=== PATIENT | male | born 1960 | race Hispanic/Latino ===

== ENCOUNTER 2017-10-29 11:18 | Emergency (ER) | payer BC ==
[2017-10-29 11:23] VITALS: BP 144/83; PULSE 90; RESP 18; TEMP 97.9; O2SAT 96
[2017-10-29] MEDS ORDERED: Lidocaine 1% w Epi 1:100,000 Inj INJ STA (12:25)
[2017-10-29] MEDS ORDERED: Lidocaine 2% w Epi 1:100,000 Inj IJ ONE (12:28)
--- NOTE | 2017-10-29 12:30 | ED PDOC ---
Upper Extremity Pain/Injury Time Seen by Provider: 10/29/17 12:07 Chief Complaint (Nursing): Upper Extremity Problem/Injury Chief Complaint (Provider): Right Thumb Laceration History Per: Patient History/Exam Limitations: no limitations Onset/Duration Of Symptoms: Hrs (x 1) Current Symptoms Are (Timing): Still Present Additional Complaint(s): Elvis is a 57 year old right hand dominant male who presents to the Emergency Department complaining of laceration on right thumb. Patient states he cut himself with a piece of "stone" at 11:05 am today. Patient is unsure of last tetanus shot. PMD: Dr. Allred Past Medical History Reviewed: Historical Data, Nursing Documentation, Vital Signs Vital Signs: Last Vital Signs Temp 97.9 F 10/29/17 11:20 Pulse 90 10/29/17 11:20 Resp 18 10/29/17 11:20 BP 144/83 10/29/17 11:20 Pulse Ox 96 10/29/17 11:20 - Medical History PMH: No Chronic Diseases - Surgical History Other surgeries: Right Knee Surgery - Family History Family History: States: No Known Family Hx - Living Arrangements Living Arrangements: With Family - Social History Current smoker - smoking cessation education provided: No Alcohol: Occasional ("Drinks, but not heaviliy") Drugs: Denies - Immunization History Hx Tetanus Toxoid Vaccination: No (not sure of last booster) - Allergies Allergies/Adverse Reactions: Allergies Allergy/AdvReac Type Severity Reaction Status Date / Time No Known Allergies Allergy Verified 10/29/17 11:20 Review of Systems ROS Statement: Except As Marked, All Systems Reviewed And Found Negative Musculoskeletal: Positive for: Other (Right Thumb Laceration) Physical Exam - Reviewed Nursing Documentation Reviewed: Yes Vital Signs Reviewed: Yes - Physical Exam Appears: Positive for: Well, Non-toxic, No Acute Distress Head Exam: Positive for: NORMOCEPHALIC Skin: Negative for: Rash Eye Exam: Positive for: Normal appearance Respiratory: Negative for: Respiratory Distress Extremity: Positive for: Other (2 cm laceration to palmar aspect of right thumb proximally with no active bleeding, full rom of affected digit. No FB to wound) Neurologic/Psych: Positive for: Alert, Oriented (x 3) - ECG O2 Sat by Pulse Oximetry: 96 (RA) Pulse Ox Interpretation: Normal Medical Decision Making Medical Decision Making: Time: 12:26 Impression: Right Thumb Laceration Plan: - Adacel 0.5 ml IM - Lac repair See procedure note. Wound care instructions given. Scribe Attestation: Documented by Devonte Rader, acting as a scribe for YIFAN Dee Provider Scribe Attestation: All medical record entries made by the Scribe were at my direction and personally dictated by me. I have reviewed the chart and agree that the record accurately reflects my personal performance of the history, physical exam, medical decision making, and the department course for this patient. I have also personally directed, reviewed, and agree with the discharge instructions and disposition. Disposition - Clinical Impression Clinical Impression: Thumb laceration, Requires a booster tetanus - Patient ED Disposition Is Patient to be Admitted: No Counseled Patient/Family Regarding: Diagnosis, Need For Followup - Disposition Referrals: [facility] [Outside] Disposition: Routine/Home Disposition Time: 13:52 Condition: STABLE Additional Instructions: Advil or tylenol as needed for pain. Keep wound clean and dry. Apply neosporin once per day and keep wound covered. Suture removal 10-14 days. Instructions: Diphtheria/Acellular Pertussis/Tetanus Booster Vaccine (Tdap) ( Injection), Care For Your Stitches (ED), Laceration (ED) Forms: [email or web address] (I[place]ic) Procedure: Wound Repair - Time Performed Time Performed: 12:57 - Time Out Time Out: Side verified, Site verified, Patient ID confirmed, Sterile procedures obs. - Procedure Procedure: Wound Repair: Right thumb laceration repair - Consent Obtained Consent obtained: Verbal - Performed by Performed by: Mid-level Provider - Indications Indication(s):: Laceration - Location Finger:: Right, Thumb Shape:: Curvilinear Dimensions Length cm: 2 Depth:: Epidermis - Anesthetic Technique Anesthetic Technique: Local Local/Regional Anesthetic:: Lidocaine 1% w/epi - Debris Debris:: None - Irrigated Irrigated with ml of normal saline: 20 - Complexity Complexity:: Simple (one layer) (4 interrupted sutures) - Wound repair method Sutures:: # (4), Type (nylon), Technique (interrupted) - Muscle repiar layer closed with Muscle repair layer closed with:: Wound well approximated, Abx ointment applied , Dressing applied, Tetanus ordered - Complications Complications: none - Patient tolerated procedure Patient Tolerated Procedure:: Well
== END 2017-10-29 14:32 | disposition home or self-care (01) ==
LOC: H.ER 11:18
DX: S61.011A Laceration without foreign body of right thumb without damage to nail, initial encounter (principal); Z23 Encounter for immunization; W45.8XXA Other foreign body or object entering through skin, initial encounter